=== PATIENT | female | born 1990 | race American Indian/Alaskan Native ===

== ENCOUNTER 2018-10-26 09:17 | Emergency (ER) | payer SELFPAY ==
[2018-10-26 09:55] LABS: Basophils # (Auto) 0.1 K/mm3 (0.0-0.1); Basophils % (Auto) 0.4 % (0.0-1.8); Eosinophils % (Auto) 0.1 % (0.0-4.3); Hematocrit 35.8 % (30.3-42.9); Hemoglobin 11.6 gm/dl (10.1-14.3); Lymphocytes # (Auto) 1.2 K/mm3 (1.2-5.4); Lymphocytes % (Auto) 7.4 % (13.4-35.0); Mean Corpuscular HGB Conc 32 % (30-34); Mean Corpuscular Volume 86 fl (79-97); Monocytes # (Auto) 1.9 K/mm3 (0.0-0.8); Monocytes % (Auto) 12.4 % (0.0-7.3); Platelet Count 187 K/mm3 (140-440); Red Blood Count 4.16 M/mm3 (3.65-5.03); Red Cell Distribution Width 16.5 % (13.2-15.2)
[2018-10-26 10:15] LABS: Bacteria,Urine 2+ /HPF (Negative); Bilirubin,Urine NEG (Negative); Blood,Urine LG (Negative); Color,Urine Amber (Yellow); Mucus,Urine 1+ /HPF
[2018-10-26 10:17] LABS: RBC,Urine > 182.0 /HPF (0.0-6.0)
[2018-10-26] MEDS ORDERED: NACL 0.9% 1000 ML 1,000 ML IV ONE (10:22)
[2018-10-26] MEDS ORDERED: MORPHINE IV ONE (10:22)
[2018-10-26] MEDS ORDERED: ZOFRAN IV ONE (10:23)
[2018-10-26] MEDS ORDERED: ROCEPHIN/NS 2 GM/100 ML 2 GM/100 ML BAG IV ONE (10:25)
[2018-10-26] MEDS ORDERED: TYLENOL PO ONE (10:25)
[2018-10-26 10:46] LABS: Alanine Aminotransferase 11 units/L (7-56); Albumin 3.8 g/dL (3.9-5); BUN/Creatinine Ratio 7; Blood Urea Nitrogen 6 mg/dL (7-17); Calcium 9.3 mg/dL (8.4-10.2); Hemolysis Index 23
[2018-10-26] MEDS ORDERED: BENADRYL ONE (10:55)
--- NOTE | 2018-10-26 11:57 | Cat Scan Report ---
PROCEDURE: CT ABDOMEN PELVIS WO CON TECHNIQUE: Computerized axial tomography of the abdomen and pelvis was performed without intravenous contrast. This study is performed without intravascular contrast material and its sensitivity for ab dominal and pelvic pathology, including neoplasms, inflammation, abscess, free fluid, thrombosis, art erial dissection and infarction, is reduced compared with a contrast enhanced study. CT DOSE LENGTH PRODUCT: 516.8 mGy-cm. HISTORY: bilat flank pain COMPARISONS: None currently available. FINDINGS: Abdomen: Lung bases and images of the heart are grossly unremarkable. Kidneys: 2.0 mm stone mid to upper right kidney. 2.9 mm stone mid to inferior right kidney. 3.[address] one inferior right kidney. 2.1 mm stone mid to upper left kidney. No hydronephrosis. No ureteral ston es. Liver, gallbladder, stomach, spleen, pancreas, and adrenals are unremarkable. IVC is unremarkable. No aortic aneurysm. No periaortic or retroperitoneal mass or adenopathy. [id number] stool. No wall thickening or inflammatory changes. Terminal ileum is unremarkable. Appendix is normal. Small bowel loops are unremarkable. No obstructive pattern. No air-fluid levels. No free air. No free fluid. Mesentery is unremarkable. Pelvis: Uterus: Limited images are unremarkable. Air attenuating tubular structure in the vagina probably rep resents a tampon. Bladder: Unremarkable. No wall thickening. No stones. There is no pelvic mass or adenopathy. Inguinal regions are unremarkable. Bones: No suspicious osseous lesions on this limited examination of the skeleton. Metastatic disease better evaluated with bone scan. Degenerative changes are in the spine. IMPRESSION: * Punctate bilateral renal stones. No hydronephrosis. No ureteral stones. This document is electronically signed by Virgilio Howell MD., Oct 26 2018 11:55:38 AM ET
--- NOTE | 2018-10-26 13:22 | Emergency Department Report ---
ED Abdominal Pain HPI - General Chief Complaint: Abdominal Pain Stated Complaint: ABD PAIN Time Seen by Provider: 10/26/18 10:21 Source: patient Mode of arrival: Ambulatory Limitations: No Limitations - History of Present Illness Severity scale (0 -10): 8 - Related Data Previous Rx's Medication Instructions Recorded Last Taken Type Ciprofloxacin HCl [Ciprofloxacin 500 mg PO Q12HR #14 tab 10/26/18 Unknown Rx TAB] cephALEXin [Keflex] 500 mg PO Q12HR #20 cap 10/26/18 Unknown Rx Allergies Allergy/AdvReac Type Severity Reaction Status Date / Time shellfish derived Allergy Rash Verified 10/26/18 11:10 Sulfa (Sulfonamide Allergy Unknown Verified 10/26/18 09:20 Antibiotics) ED Review of Systems ROS: Stated complaint: ABD PAIN Other details as noted in HPI ED Past Medical Hx - Past Medical History Previous Medical History?: No - Surgical History Past Surgical History?: Yes Additional Surgical History: C section - Social History Smoking Status: Current Every Day Smoker Substance Use Type: Alcohol - Medications Home Medications: Home Medications Medication Instructions Recorded Confirmed Last Taken Type Ciprofloxacin HCl [Ciprofloxacin 500 mg PO Q12HR #14 tab 10/26/18 Unknown Rx TAB] cephALEXin [Keflex] 500 mg PO Q12HR #20 cap 10/26/18 Unknown Rx ED Physical Exam - General Limitations: No Limitations ED Course Vital Signs 10/26/18 09:22 Temperature 101.1 F H Pulse Rate 107 H Respiratory 18 Rate Blood Pressure 113/75 O2 Sat by Pulse 100 Oximetry ED Medical Decision Making - Lab Data Result diagrams: 10/26/18 09:39 10/26/18 09:39 Critical care attestation.: If time is entered above; I have spent that time in minutes in the direct care of this critically ill patient, excluding procedure time. ED Disposition Clinical Impression: UTI (urinary tract infection) Qualifiers: Urinary tract infection type: acute cystitis Hematuria presence: with hematuria Qualified Code(s): N30.01 - Acute cystitis with hematuria Disposition: TO HOME OR SELFCARE Is pt being admited?: No Does the pt Need Aspirin: No Condition: Stable Instructions: Abdominal Pain (ED) Prescriptions: Ciprofloxacin HCl [Ciprofloxacin TAB] 500 mg PO Q12HR #14 tab cephALEXin [Keflex] 500 mg PO Q12HR #20 cap Referrals: LARON SELF MD [Primary Care Provider] - 3-5 Days
--- NOTE | 2018-10-26 13:29 | Emergency Department Report ---
ED Abdominal Pain HPI - General Chief Complaint: Abdominal Pain Stated Complaint: ABD PAIN Time Seen by Provider: 10/26/18 10:21 Source: patient Mode of arrival: Ambulatory Limitations: No Limitations - History of Present Illness Initial Comments: 27-year-old -[place] female presents to ED with suprapubic discomfort, 10 out of 10 sharp pain, radiating to bilateral side, low-grade fever, nausea but no vomiting. Symptoms have been going on for the past 2 days. Patient hasn't taking any medications for her symptoms. Denies any alleviating factors, denies any exacerbating factors. MD Complaint: abdominal pain -: Gradual, days(s) (3) Location: suprapubic Radiation: L flank, R flank Migration to: no migration Severity: moderate Severity scale (0 -10): 10 Quality: sharp Consistency: constant Improves With: nothing Worsens With: nothing Associated Symptoms: nausea, vomiting - Related Data LMP (females 10-50): 3 weeks Previous Rx's Medication Instructions Recorded Last Taken Type Ciprofloxacin HCl [Ciprofloxacin 500 mg PO Q12HR #14 tab 10/26/18 Unknown Rx TAB] Cyclobenzaprine [Flexeril] 10 mg PO TID PRN #21 tablet 10/26/18 Unknown Rx Ketorolac [Toradol] 10 mg PO Q6H PRN #12 tablet 10/26/18 Unknown Rx cephALEXin [Keflex] 500 mg PO Q12HR #20 cap 10/26/18 Unknown Rx Allergies Allergy/AdvReac Type Severity Reaction Status Date / Time shellfish derived Allergy Rash Verified 10/26/18 11:10 Sulfa (Sulfonamide Allergy Unknown Verified 10/26/18 09:20 Antibiotics) ED Review of Systems ROS: Stated complaint: ABD PAIN Other details as noted in HPI Comment: All other systems reviewed and negative Gastrointestinal: abdominal pain, nausea. denies: diarrhea, constipation, hematemesis, melena Genitourinary: dysuria. denies: frequency, hematuria, discharge ED Past Medical Hx - Past Medical History Previous Medical History?: No - Surgical History Past Surgical History?: Yes Additional Surgical History: C section - Social History Smoking Status: Current Every Day Smoker Substance Use Type: Alcohol - Medications Home Medications: Home Medications Medication Instructions Recorded Confirmed Last Taken Type Ciprofloxacin HCl [Ciprofloxacin 500 mg PO Q12HR #14 tab 10/26/18 Unknown Rx TAB] Cyclobenzaprine [Flexeril] 10 mg PO TID PRN #21 tablet 10/26/18 Unknown Rx Ketorolac [Toradol] 10 mg PO Q6H PRN #12 tablet 10/26/18 Unknown Rx cephALEXin [Keflex] 500 mg PO Q12HR #20 cap 10/26/18 Unknown Rx ED Physical Exam - General Limitations: No Limitations General appearance: alert, in no apparent distress - Head Head exam: Present: atraumatic, normocephalic - Eye Eye exam: Present: normal appearance, PERRL, EOMI - ENT ENT exam: Present: normal exam, normal orophraynx, mucous membranes dry - Neck Neck exam: Present: normal inspection, tenderness - Respiratory Respiratory exam: Present: normal lung sounds bilaterally - Cardiovascular Cardiovascular Exam: Present: regular rate, normal rhythm, normal heart sounds - GI/Abdominal GI/Abdominal exam: Present: soft, distended, tenderness (suprapubic) - Extremities Exam Extremities exam: Present: normal inspection - Back Exam Back exam: Present: normal inspection - Neurological Exam Neurological exam: Present: alert, altered ED Course Vital Signs 10/26/18 10/26/18 09:22 13:53 Temperature 101.1 F H 98.8 F Pulse Rate 107 H 95 H Respiratory 18 16 Rate Blood Pressure 113/75 Blood Pressure 125/82 [Left] O2 Sat by Pulse 100 100 Oximetry ED Medical Decision Making - Lab Data Result diagrams: 10/26/18 09:39 10/26/18 09:39 - Radiology Data Radiology results: report reviewed - Medical Decision Making Patient with fever, suprapubic discomfort, white count 15, consistent with UTI, finding this made the patient, will DC home with medication. Cipro, Keflex, and Flexeril for pain and return to ED if symptoms worsen. Critical care attestation.: If time is entered above; I have spent that time in minutes in the direct care of this critically ill patient, excluding procedure time. ED Disposition Clinical Impression: UTI (urinary tract infection) Qualifiers: Urinary tract infection type: acute cystitis Hematuria presence: with hematuria Qualified Code(s): N30.01 - Acute cystitis with hematuria Disposition: DC-01 TO HOME OR SELFCARE Is pt being admited?: No Does the pt Need Aspirin: No Condition: Stable Instructions: Abdominal Pain (ED) Prescriptions: Ciprofloxacin HCl [Ciprofloxacin TAB] 500 mg PO Q12HR #14 tab Cyclobenzaprine [Flexeril] 10 mg PO TID PRN #21 tablet PRN Reason: Muscle Spasm cephALEXin [Keflex] 500 mg PO Q12HR #20 cap Ketorolac [Toradol] 10 mg PO Q6H PRN #12 tablet PRN Reason: Pain Referrals: LARON SELF MD [Primary Care Provider] - 3-5 Days
[2018-10-26] MEDS ORDERED: BENADRYL IV ONE (13:44)
[2018-10-26 13:54] VITALS: BP 125/82
== END 2018-10-26 13:54 | disposition home or self-care (01) ==
LOC: ED 09:17
DX: N30.01 Acute cystitis with hematuria (principal); F17.200 Nicotine dependence, unspecified, uncomplicated; Z91.013 Allergy to seafood; Z88.2 Allergy status to sulfonamides
CPT/HCPCS: 36415; 74176; 80053; 81001; 82140; 84703; 85025; 96365; 96375; 99284; J0696; J1200; J2270; J2405; J7030